=== PATIENT | male | born 1985 | race African-American/Black ===

== ENCOUNTER 2017-12-01 05:16 | Emergency (ER) | payer OTHER ==
[~2017-12-01] VITALS: Ht 172.7 cm; Wt 87.5 kg
[2017-12-01 05:38] LABS: HEMOGLOBIN 14.3 gm/dL (14.0-18.0); MCH 27.6 pg (26.0-34.0); MCHC 34.1 g/dL (28.0-37.0); MCV 80.7 fL (80.0-100.0); RBC 5.2 mil/uL (4.50-6.00); RDW 14.5 % (10.5-14.5); WBC 5.5 thou/uL (4.0-11.0)
[2017-12-01 05:39] LABS: URINE BILIRUBIN NEGATIVE (Negative); URINE BLOOD NEGATIVE (Negative); URINE CLARITY CLEAR; URINE COLOR YELLOW; URINE GLUCOSE-RANDOM* NEGATIVE (Negative); URINE KETONES NEGATIVE (Negative); URINE LEUKOCYTES-REFLEX NEGATIVE (Negative); URINE NITRITE-REFLEX NEGATIVE (Negative); URINE PROTEIN (DIPSTICK) NEGATIVE (Negative); URINE UROBILINOGEN 0.2 E.U./dl (0.2-1.0)
[2017-12-01] MEDS ORDERED: NOHOMEMEDICATIONS (05:41)
[2017-12-01 05:45] LABS: CALCIUM 9.7 mg/dL (8.5-10.1); CREATININE 1.1 mg/dL (0.7-1.3); POTASSIUM 3.4 mmol/L (3.5-5.1)
[2017-12-01 05:51] LABS: ALBUMIN 4.4 g/dL (3.4-5.0); TOTAL BILIRUBIN 0.5 mg/dL (<0.1-1.0); TOTAL PROTEIN 8.3 g/dL (6.4-8.2)
== END 2017-12-01 06:32 | disposition home or self-care (01) ==
LOC: ER 05:16
PROVIDERS: Emergency Medicine
DX: R10.11 Right upper quadrant pain (principal)

== ENCOUNTER 2019-06-20 17:37 | Emergency (ER) | payer OTHER ==
[~2019-06-20] VITALS: Ht 172.7 cm; Wt 86.2 kg
[~2019-06-20 17:37] MED LIST: NOHOMEMEDICATIONS
[2019-06-20 18:59] LABS: HEMOGLOBIN 14.2 gm/dL (14.0-18.0); MCH 27.4 pg (26.0-34.0); MCHC 33.8 g/dL (28.0-37.0); PLATELET COUNT 146 thou/uL (150-400); RBC 5.19 mil/uL (4.50-6.00); RDW 14.7 % (10.5-14.5); WBC 3.2 thou/uL (4.0-11.0)
[2019-06-20 19:09] LABS: ANION GAP 10 mmol/L (7-16); BUN 12 mg/dL (7-18); CALCIUM 9.7 mg/dL (8.5-10.1); CHLORIDE 101 mmol/L (98-107); CO2 27 mmol/L (21-32); CREATININE 1.1 mg/dL (0.7-1.3); GLUCOSE 117 mg/dL (74-106); POTASSIUM 3.8 mmol/L (3.5-5.1); SODIUM 138 mmol/L (136-145)
[2019-06-20 19:18] LABS: TROPONIN-I <0.06 ng/mL (<0.06)
[2019-06-20 19:29] LABS: ABSOLUTE NEUTROPHILS 1.7 thou/uL (1.4-8.2)
[2019-06-20 19:30] LABS: ANISOCYTOSIS 1+
[2019-06-20 20:15] VITALS: BP 129/68
--- NOTE | 2019-06-21 08:16 | EKG ---
[place] [address] [address] [place] [address] ELECTROCARDIOGRAM REPORT Name: KATHARINA VALDES [id number] Admission: 06/20/19 Attend Phys: Discharge: 06/20/19 Date of : 81 Report #: [id number] THIS REPORT FOR: //name// [facility] ED Test Date: 2019-06-20 Test Time: 17:55:43 Pat Name: KATHARINA VALDES Department: Room: Gender: Circulation Sales Representative: jlambertz : 1985 Requested By: Vicenta Rogers Order Number: [id number] MD: Kofi Strong Measurements Intervals [place] Rate: 80 P: 58 OR: 184 QRS: 7 QRSD: 83 T: 17 QT: 353 QTc: 408 Interpretive Statements Sinus rhythm No significant abnormality No previous ECG available for comparison Electronically Signed On 06-21-2019 8:16:47 CDT by Kofi Strong [email or web address] <ELECTRONICALLY SIGNED> By: Kofi Strong MD, [facility] 06/21/19 0816 [id number] 1755 Kofi Strong MD, FACC /EPI
== END 2019-06-20 20:30 | disposition home or self-care (01) ==
LOC: ER 17:37
PROVIDERS: Emergency Medicine
DX: R07.89 Other chest pain (principal); J45.909 Unspecified asthma, uncomplicated; E10.8 Type 1 diabetes mellitus with unspecified complications